=== PATIENT | female | born 1960 | race Caucasian/White ===

== ENCOUNTER 2018-01-31 20:53 | Emergency (ER) | payer SELFPAY ==
[~2018-01-31] VITALS: Ht 162.6 cm; Wt 75.7 kg
[~2018-01-31 20:53] MED LIST: BUPROBAN150 MG PO; CELEXA40 MG PO; LOSARTAN-HCTZ1 EAC1 PO; NORVASC5 MG PO; PANTOPRAZOLE SO40 MG PO
[2018-01-31] MEDS ORDERED: NIFEDIPINE 10 MG CAP PO ONE (21:45)
[2018-01-31] MEDS ORDERED: FAMOTIDINE 20 MG TAB PO STA (21:59)
[2018-01-31] MEDS ORDERED: DIPHENHYDRAMINE HCL 25 MG CAP PO STA (21:59)
== END 2018-01-31 22:18 | disposition left against medical advice (07) ==
LOC: ER 20:53
DX: I10 Essential (primary) hypertension (principal); F41.9 Anxiety disorder, unspecified; F32.9 Major depressive disorder, single episode, unspecified; G89.29 Other chronic pain
CPT/HCPCS: 93005

== ENCOUNTER 2024-09-06 09:48 | Emergency (ER) | payer OTHER ==
[~2024-09-06] VITALS: Ht 162.6 cm; Wt 75.7 kg
[~2024-09-06 09:48] MED LIST changes: +CEFDINIR300 MG PO; +DICYCLOMINE HCL20 MG PO; +NAPROXEN250 MG PO; +ONDANSETRON ODT4 MG PO
[2024-09-06 09:54] VITALS: TEMP 97.8
[2024-09-06] MEDS: ONDANSETRON HCL INJ 2MG/ML 2ML 2 MG/ML VIAL IV STA (10:58)
[2024-09-06] MEDS: KETOROLAC TROMETHAMINE 30 MG/ML VIAL IV STA (10:58)
[2024-09-06] MEDS: SODIUM CHLORIDE 0.9% 1000ML 1,000 ML IV STA (10:58)
[2024-09-06] MEDS: ORPHENADRINE CITRATE 30 MG/ML VIAL IM ONE (10:59)
[2024-09-06 11:06] LABS: BASOPHILS # (AUTO) 0.1 (0.0-0.1); BASOPHILS % 0.5 % (0.0-1.0); EOSINOPHILS # (AUTO) 0.1 (0.0-0.4); EOSINOPHILS % 1.4 % (0.0-6.0); HEMATOCRIT 44.8 % (34.2-44.1); LYMPHOCYTES # (AUTO) 2.1 (1.0-3.2); LYMPHOCYTES % 22.2 % (18.0-39.1); MEAN CORPUSCULAR HEMOGLOBIN 29.2 pg (28-32); MEAN CORPUSCULAR HGB CONC 33.5 g/dL (31-35); MEAN CORPUSCULAR VOLUME 87.2 fL (81-99); MONOCYTES # (AUTO) 0.6 (0.2-0.8); MONOCYTES % 6.4 % (4.4-11.3); NEUTROPHILS # (AUTO) 6.4 (2.1-6.9); NEUTROPHILS % 69.2 % (38.7-80.0); PLATELET COUNT 400 x10e3/uL (140-360); RED BLOOD COUNT 5.14 x10e6/uL (3.6-5.1); RED CELL DISTRIBUTION WIDTH 12.3 % (11.7-14.4); WHITE BLOOD COUNT 9.27 x10e3/uL (4.8-10.8)
[2024-09-06 11:45] LABS: ALANINE AMINOTRANSFERASE 16 IU/L (0-55); ALBUMIN 4.7 g/dL (3.5-5.0); ALBUMIN/GLOBULIN RATIO 1.5 (0.8-2.0); ALKALINE PHOSPHATASE 71 IU/L (40-150); ANION GAP 16.7 mmol/L (8-16); BILIRUBIN,TOTAL 0.6 mg/dL (0.2-1.2); BLOOD UREA NITROGEN 20 mg/dL (7-26); BUN/CREATININE RATIO 24 (6-25); CALCIUM 10.1 mg/dL (8.4-10.2); CARBON DIOXIDE 24 mmol/L (22-29); CHLORIDE 102 mmol/L (98-107); CREATINE KINASE 36 IU/L (29-168); CREATININE, SERUM 0.83 mg/dL (0.57-1.11); EST GLOMERULAR FILTRATION RATE 79 ML/MIN (>=60); GLUCOSE 88 mg/dL (74-118); MAGNESIUM 1.9 MG/DL (1.3-2.1); POTASSIUM 3.7 mmol/L (3.5-5.1); SODIUM 139 mmol/L (136-145); TOTAL PROTEIN 7.9 g/dL (6.5-8.1)
[2024-09-06 11:47] LABS: INR 0.87; PROTHROMBIN TIME 12.4 seconds (11.9-14.5)
[2024-09-06 11:59] LABS: TROPONIN I < 0.001 ng/mL (0-0.300)
[2024-09-06] MEDS ORDERED: METHOCARBAMOL500 MG PO (12:28)
[2024-09-06 12:46] VITALS: PULSE 53; RESP 18; O2SAT 100
== END 2024-09-06 12:52 | disposition home or self-care (01) ==
LOC: ER 10:02
DX: G89.29 Other chronic pain (principal); M54.2 Cervicalgia; M54.9 Dorsalgia, unspecified; I10 Essential (primary) hypertension; N80.9 Endometriosis, unspecified; F41.9 Anxiety disorder, unspecified; F32.A Depression, unspecified
CPT/HCPCS: 36415; 71045; 80053; 82550; 83735; 84484; 85025; 85610; 99283; J1885; J2360; J2405; J7030

== ENCOUNTER → 2025-01-07 | Day surgery (SDC) | payer OTHER ==
[~2025-01-07] MED LIST changes: +BACLOFEN10 MG PO; +FENTANYL CITRATE/PF 100MCG/2 ML INJ ONE; +GLUCAGON FOR INJ 1 MG VIAL ONE; +HYOSCYAMINE SULFATE 0.5 MG/ML INJ ONE; +KLONOPIN0.5 MG PO; +LEXAPRO20 MG PO; +LIDOCAINE HCL 2% LOCAL INJ 5 ML SDV VIAL INJ ONE; +METHOCARBAMOL500 MG PO; +NP THYROID60 MG PO; +PROPOFOL IV EMULSION 10 MG/ML 20 ML VIAL ONE; +PROPOFOL IV EMULSION 50 ML IV ONE; +REXULTI4 MG PO; +ULTRAM 50MG50 MG PO; +VIT B12 INJ
[2025-01-07] MEDS: LACTATED RINGER'S 1,000 ML ONE (10:47)
[2025-01-07 12:16] VITALS: TEMP 98.6
[2025-01-07 12:45] VITALS: BP 144/81; PULSE 86; RESP 16; O2SAT 99
== END | disposition home or self-care (01) ==
LOC: OR 08:30
PROVIDERS: ATTEND Internal Medicine Gastroenterology
DX: K21.00 Gastro-esophageal reflux disease with esophagitis, without bleeding (principal); K29.50 Unspecified chronic gastritis without bleeding; K31.89 Other diseases of stomach and duodenum; K56.699 Other intestinal obstruction unspecified as to partial versus complete obstruction; R19.5 Other fecal abnormalities; K59.09 Other constipation; K64.8 Other hemorrhoids; I10 Essential (primary) hypertension; E03.9 Hypothyroidism, unspecified; F41.8 Other specified anxiety disorders; Z71.3 Dietary counseling and surveillance; Z68.32 Body mass index [BMI] 32.0-32.9, adult; M19.91 Primary osteoarthritis, unspecified site; Z01.810 Encounter for preprocedural cardiovascular examination; Z79.899 Other long term (current) drug therapy
CPT/HCPCS: 43239; 45378; 93005; J1610; J1980; J2003; J2470; J2704 ×2; J3010; J7121